=== PATIENT | female | born 1960 | race Caucasian/White ===

== ENCOUNTER → 2018-06-02 | Outpatient (CLI) | payer OTHER ==
--- NOTE | 2018-06-06 10:42 | MM ---
Reason for exam: screening (asymptomatic). Last mammogram was performed 4 years and 4 months ago. History: Patient is postmenopausal. Family history of breast cancer in sister, breast cancer in maternal aunt, breast cancer in maternal cousin, and breast cancer in mother at age 55. Benign left US cyst aspiration of the left breast, May 09, 2010. Took hormonal contraceptives for 19 years beginning at age 18. MG Screening Mammo w CAD Bilateral CC and MLO view(s) were taken. Prior study comparison: February 08, 2014, right breast MG work up mamm w CAD RT. February 02, 2014, bilateral MG screening mammo w CAD. The breast tissue is heterogeneously dense. This may lower the sensitivity of mammography. There are benign-appearing round right breast calcifications. Chronic nodularityin the left axilla. No discrete abnormality. ASSESSMENT: Benign, BI-RAD 2 RECOMMENDATION: Routine screening mammogram of both breasts in 1 year.
== END ==
LOC: RADMAMWWP 07:24
PROVIDERS: ATTEND Family Medicine
DX: Z12.31 Encounter for screening mammogram for malignant neoplasm of breast (principal)
CPT/HCPCS: 77067

== ENCOUNTER 2018-10-18 22:53 | Emergency (ER) | payer OTHER ==
[2018-10-18 23:09] VITALS: TEMP 98.9
[2018-10-18] MEDS ORDERED: SODIUM CHLORIDE 0.9% 1,000 ML IV STA (23:17)
[2018-10-18 23:48] LABS: Amorphous Sediment,Urine Occasional /hpf; Appearance,Urine Turbid (Clear); Bilirubin,Urine Negative (Negative); Blood,Urine Small (Negative); Color,Urine Yellow; Glucose,Urine (UA) Negative (Negative); Ketones,Urine Negative (Negative); Leukocyte Esterase,Urine Negative (Negative); Mucus,Urine Few /hpf; Nitrite,Urine Negative (Negative); PH, Urine 5.5 (5.0-8.0); Protein,Urine Trace (Negative); RBC,Urine 15 /hpf (0-5); Specific Gravity,Urine 1.028 (1.001-1.035); Squamous Epithelial Cell,Urine 9 /hpf (0-4); Urobilinogen,Urine <2.0 mg/dL (<2.0)
[2018-10-18 23:49] LABS: HCT 41.1 % (34.0-46.0); HGB 13.7 gm/dL (11.4-16.0); MCH 28.6 pg (25.0-35.0); MCHC 33.2 g/dL (31.0-37.0); MCV 86.2 fL (80.0-100.0); Mean Platelet Volume 7.3; Platelet Count 278 k/uL (150-450); RBC 4.78 m/uL (3.80-5.40); RDW 14.1 % (11.5-15.5); WBC 5.1 k/uL (3.8-10.6)
[2018-10-18 23:52] LABS: ALT 44 U/L (9-52); AST 33 U/L (14-36); Albumin 3.5 g/dL (3.5-5.0); Alkaline Phosphatase 60 U/L (38-126); Anion Gap 6 mmol/L; Blood Urea Nitrogen 11 mg/dL (7-17); Calcium 8.8 mg/dL (8.4-10.2); Carbon Dioxide 27 mmol/L (22-30); Chloride 106 mmol/L (98-107); Glucose 103 mg/dL (74-99); Lipase 68 U/L (23-300); Potassium 3.5 mmol/L (3.5-5.1); Sodium 139 mmol/L (137-145); Total Bilirubin 0.2 mg/dL (0.2-1.3); Total Protein 5.9 g/dL (6.3-8.2)
[2018-10-19 00:18] LABS: Lymphocytes # (M) 1.33 k/uL (1.0-4.8); Monocytes # (M) 0.66 k/uL (0-1.0); Neutrophils # (M) 2.91 k/uL (1.3-7.7); Neutrophils % (M) 57 %; Nucleated Red Blood Cells 0 /100 WBC (0-0); Total Cells Counted 100
[2018-10-19] MEDS ORDERED: PANTOPRAZOLE 40 MG/10 ML VIAL IVP STA (00:25)
[2018-10-19] MEDS ORDERED: ACETAMINOPHEN TAB 325 MG TAB PO STA (01:08)
[2018-10-19 01:24] VITALS: BP 106/59; PULSE 96; RESP 18
--- NOTE | 2018-10-19 01:24 | ED ---
General Adult HPI - General Source: patient, RN notes reviewed, old records reviewed Mode of arrival: ambulatory Limitations: no limitations <Trent Redd - Last Filed: 10/19/18 01:55> <Steph Kaufman - Last Filed: 10/19/18 07:25> - General Chief complaint: Abdominal Pain Stated complaint: Abd Pain Time Seen by Provider: 10/18/18 23:16 - History of Present Illness Initial comments: 58-year-old female patient with past medical history of cholecystectomy presents ED with 2 days of epigastric pain, nausea and diarrhea. Patient states that she also feels very bloated. Patient states that she has taken Zantac at home which has not improved her symptoms. Patient denies any chest pain or shortness of breath. Patient denies any other complaints. Systemic: Pt denies fatigue, myalgia, fever/chills, rash. Pt denies weakness, night sweats, weight loss. Neuro: Pt denies headache, visual disturbances, syncope or pre-syncope. HEENT: Pt denies ocular discharge or irritation, otalgia, rhinorrhea, pharyngi tis or notable lymphadenopathy. Cardiopulmonary: Pt denies chest pain, SOB, heart palpitations, dyspnea on exertion. Abdominal/GI: Pt denies nausea and vomitting. : Pt denies dysuria, burning w/ urination, frequency/urgency. Denies new onset urinary or bowel incontinence. MSK: Pt denies myalgia, loss of strength or function in extremities. Neuro: Pt denies new onset weakness, paresthesias. (Trent Redd) - Related Data Previous Rx's Medication Instructions Recorded Ondansetron Odt [Zofran ODT] 4 mg PO Q8HR PRN #20 tab 10/19/18 Pantoprazole Sodium [Protonix] 20 mg PO Q24HR 14 Days #14 10/19/18 tablet. Allergies Allergy/AdvReac Type Severity Reaction Status Date / Time codeine AdvReac Nausea & Verified 10/18/18 23:09 Vomiting Review of Systems ROS Other: All systems not noted in ROS Statement are negative. <Trent Redd - Last Filed: 10/19/18 01:55> ROS Other: All systems not noted in ROS Statement are negative. <Steph Kaufman - Last Filed: 10/19/18 07:25> ROS Statement: Those systems with pertinent positive or pertinent negative responses have been documented in the HPI. Past Medical History Additional Past Medical History / Comment(s): ectopic History of Any Multi-Drug Resistant Organisms: None Reported Past Surgical History: Cholecystectomy Past Psychological History: No Psychological Hx Reported Smoking Status: Former smoker Past Alcohol Use History: Occasional Past Drug Use History: None Reported <Trent Redd - Last Filed: 10/19/18 01:55> General Exam Limitations: no limitations <Trent Redd - Last Filed: 10/19/18 01:55> - General Exam Comments Initial Comments: Constitutional: NAD, AOX3, Pt has pleasant affect. HEENT: NC/AT, trachea midline, neck supple, no lymphadenopathy. Posterior pharynx non erythematous, without exudates. External ears appear normal, without discharge. Mucous membranes moist. Eyes PERRLA, EOM intact. There is no scleral icterus. No pallor noted. Cardiopulmonary: RRR, no murmurs, rubs or gallops, no JVD noted. Lungs CTAB in anterior and posterior palma. No peripheral edema. Abdominal exam: Abdomen soft and non-distended. Abdomen mildly tender to palpation in epigastric region. No other areas of abdominal tenderness. No guarding or rigidity no ecchymoses.. Bowel sounds active in LLQ. No hepatosplenomegaly. No ecchymosis Neuro: CN II-XII grossly intact. No nuchal rigidity. MSK: No posterior calf tenderness bilaterally, homans sign negative bilaterally. Posterior tibialis and radial pulse +2 bilaterally. Sensation intact in upper and lower extremities. Full active ROM in upper and lower extremities, 5/5 stregnth. (Trent eRdd) Course Vital Signs 10/18/18 10/19/18 23:05 01:23 Temperature 98.9 F Pulse Rate 104 H 96 Respiratory 20 18 Rate Blood Pressure 116/76 106/59 O2 Sat by Pulse 97 100 Oximetry Medical Decision Making - Lab Data Result diagrams: 10/18/18 23:30 10/18/18 23:30 <Trent Redd - Last Filed: 10/19/18 01:55> - Lab Data Result diagrams: 10/18/18 23:30 10/18/18 23:30 <Steph Kaufman - Last Filed: 10/19/18 07:25> - Medical Decision Making 58-year-old female patient with past medical history of cholecystectomy presents ED with 2 days of epigastric pain, nausea and diarrhea. Patient states that she also feels very bloated. Patient states that she has taken Zantac at home which has not improved her symptoms. Patient denies any chest pain or shortness of breath. Patient denies any other complaints. Patient also has stable, afebrile. Physical exam revealed mild epigastric tenderness to palpation. O2 investigations revealed no impressive CBC, CMP. UA displayed 15 red blood cells, 9 squamous epithelial cells. Discussed with patient. Patient this is likely gastritis. Patient's CT, patient reports that she would like to have a computed tomography scan to rule out other causes. CT abdomen and pelvis displayed fluid filled bowel which may represent enteritis. Findings also suggestive of mesenteric panniculitis. Patient will be discharged with GI referral. Patient will be prescribed protonix for presumed gastritis. Will follow up with primary care provider in 1-2 days. Case discussed with Dr. Kaufman. (Trent Redd) I was available for consultation in the emergency department. The history and physical exam were done by the midlevel provider. I was consulted for this patient's care. I reviewed the case with the midlevel provider and based on their presentation of the patient, I agree with the assessment, medical decision making and plan of care as documented. Chart was dictated using [employer] dictation software. Attempts were made to correct any dictation errors however some typographical errors may persist. (Steph Kaufman) - Lab Data Lab Results 10/18/18 10/18/18 10/18/18 Range/Units 23:30 23:30 23:30 WBC 5.1 (3.8-10.6) k/uL RBC 4.78 (3.80-5.40) m/uL Hgb 13.7 (11.4-16.0) gm/dL Hct 41.1 (34.0-46.0) % MCV 86.2 (80.0-100.0) fL MCH 28.6 (25.0-35.0) pg MCHC 33.2 (31.0-37.0) g/dL RDW 14.1 (11.5-15.5) % Plt Count 278 (150-450) k/uL Neutrophils % (Manual) 57 % Lymphocytes % (Manual) 26 % Monocytes % (Manual) 13 % Eosinophils % (Manual) 4 % Neutrophils # (Manual) 2.91 (1.3-7.7) k/uL Lymphocytes # (Manual) 1.33 (1.0-4.8) k/uL Monocytes # (Manual) 0.66 (0-1.0) k/uL Eosinophils # (Manual) 0.20 (0-0.7) k/uL Nucleated RBCs 0 (0-0) /100 WBC Manual Slide Review Performed Sodium 139 (137-145) mmol/L Potassium 3.5 (3.5-5.1) mmol/L Chloride 106 (98-107) mmol/L Carbon Dioxide 27 (22-30) mmol/L Anion Gap 6 mmol/L BUN 11 (7-17) mg/dL Creatinine 0.58 (0.52-1.04) mg/dL Est GFR (CKD-EPI)AfAm >90 (>60 ml/min/1.73 sqM) Est GFR (CKD-EPI)NonAf >90 (>60 ml/min/1.73 sqM) Glucose 103 H (74-99) mg/dL Calcium 8.8 (8.4-10.2) mg/dL Total Bilirubin 0.2 (0.2-1.3) mg/dL AST 33 (14-36) U/L ALT 44 (9-52) U/L Alkaline Phosphatase 60 (38-126) U/L Total Protein 5.9 L (6.3-8.2) g/dL Albumin 3.5 (3.5-5.0) g/dL Lipase 68 (23-300) U/L Urine Color Yellow Urine Appearance Turbid H (Clear) Urine pH 5.5 (5.0-8.0) Ur Specific [place] 1.028 (1.001-1.035) Urine Protein Trace H (Negative) Urine Glucose (UA) Negative (Negative) Urine Ketones Negative (Negative) Urine Blood Small H (Negative) Urine Nitrite Negative (Negative) Urine Bilirubin Negative (Negative) Urine Urobilinogen <2.0 (<2.0) mg/dL Ur Leukocyte Esterase Negative (Negative) Urine RBC 15 H (0-5) /hpf Ur Squamous Epith Cells 9 H (0-4) /hpf Amorphous Sediment Occasional H (None) /hpf Urine Mucus Few H (None) /hpf Disposition Is patient prescribed a controlled substance at d/c from ED?: No <KangelieserTrent James - Last Filed: 10/19/18 01:55> <Steph Kaufman - Last Filed: 10/19/18 07:25> Clinical Impression: Gastritis Disposition: HOME SELF-CARE Condition: Stable Instructions (If sedation given, give patient instructions): Gastritis (ED) Additional Instructions: Patient to adhere to previously discussed treatment plan and will take medication(s) as directed. Patient to follow up with PCP in 1-2 days. Patient to return to ED if symptoms do not improve. Take medication as prescribed. Follow up with GI consult 1-2 days. Follow up with primary care provider in 1-2 days. Prescriptions: Pantoprazole Sodium [Protonix] 20 mg PO Q24HR 14 Days #14 tablet. Ondansetron Odt [Zofran ODT] 4 mg PO Q8HR PRN #20 tab PRN Reason: Nausea Referrals: Boaz Edwards MD [Primary Care Provider] - 1-2 days Mk Jimenez MD [STAFF PHYSICIAN] - 1-2 days
--- NOTE | 2018-10-19 01:34 | CT ---
EXAM: CT Abdomen and Pelvis With Intravenous Contrast CLINICAL HISTORY: Pain TECHNIQUE: Axial computed tomography images of the abdomen and pelvis with intravenous contrast. DLP is 782 mGy-cm. This CT exam was performed using one or more of the following dose reduction techniques: automated exposure control, adjustment of the mA and/or kV according to patient size, and/or use of iterative reconstruction technique. COMPARISON: No prior CT. Ultrasound and plain films from February 2013. FINDINGS: Imaged lung bases clear. No evidence for acute pancreatitis or other acute abnormality of the solid viscera. Left adrenal thickening/possible mild nodularity. Pelvic vessels mildly prominent. May represent findings of pelvic congestion. No bowel obstruction. There is prominent fluid in bowel including the colon. Nonspecific gastric distention. No perienteric inflammatory changes. Findings may represent enteritis in the appropriate clinical context. There is infiltration of mesenteric root with small mesenteric nodes. Finding suggest mesenteric panniculitis. Although can be asymptomatic, clinical presentation is variable with symptoms including abdominal pain and diarrhea. Associated with various conditions, both neoplastic and nonneoplastic. No evidence for appendicitis. Cholecystectomy. Osseous degenerative changes. Transitional lumbosacral vertebra with pseudoarthrosis on the left. IMPRESSION: Prominent fluid in bowel without perienteric inflammatory changes. May represent enteritis in the appropriate clinical context. Findings suggestive of mesenteric panniculitis. Although can be asymptomatic, clinical presentation is variable with symptoms including abdominal pain and diarrhea. Associated with various conditions, both neoplastic and nonneoplastic. PET/CT may be useful to differentiate between mesenteric panniculitis and malignant mesenteric involvement such as lymphoma and could be obtained non-emergently, as indicated. Findings which may represent pelvic congestion and other incidentals, as above.
[2018-10-19] MEDS ORDERED: ONDANSETRON ODT 4 MG TAB PO STA (02:15)
== END 2018-10-19 02:19 | disposition home or self-care (01) ==
LOC: EC 22:53
DX: K29.70 Gastritis, unspecified, without bleeding (principal); Z88.5 Allergy status to narcotic agent; Z87.891 Personal history of nicotine dependence; Z90.49 Acquired absence of other specified parts of digestive tract
CPT/HCPCS: 36415; 80053; 83690; 85025; 81001; 74177; 99284; 96374; 96361; C9113; Q9967

== ENCOUNTER → 2022-03-19 | Outpatient (CLI) | payer OTHER ==
--- NOTE | 2022-03-20 16:55 | MM ---
Reason for Exam: Screening (asymptomatic). Last mammogram was performed 3 year(s) and 9 month(s) ago. Patient History: Menarche at age 14. First Full-Term at age 23. Postmenopausal. Hormonal Contraceptives, from age 18 until age 32. 05/09/2010, Benign Cyst Aspiration on the left side. Maternal cousin had breast cancer. Maternal aunt had breast cancer. Sister had breast cancer at or over age 50. Mother had breast cancer, age 55. Risk Values: Lexi 5 year model risk: 5.6%. NCI Lifetime model risk: 27.2%. Prior Study Comparison: 02/02/2014 Bilateral Screening Mammogram, [facility]. 02/08/2014 Right Diagnostic Mammogram, [facility]. 06/02/2018 Bilateral Screening Mammogram, [facility]. Tissue Density: There are scattered fibroglandular densities. Findings: Analyzed By CAD. Chronic nodularity is present. No suspicious groups of microcalcifications, spiculated or lobular masses, architectural distortion or other secondary signs of malignancy are mammographically apparent. Overall Assessment: Negative, BI-RAD 1 Management: Screening Mammogram of both breasts in 1 year. A negative mammogram report should not preclude additional follow up of suspicious palpable abnormalities. Patient should continue monthly self breast exam. A clinical breast exam by your physician is recommended on an annual basis and results should be correlated with mammographic findings. Electronically signed and approved by: Denis Solis D.O. Radiologis
== END | disposition home or self-care (01) ==
LOC: RADMAMWWP 15:18
PROVIDERS: ATTEND Obstetrics & Gynecology
DX: Z12.31 Encounter for screening mammogram for malignant neoplasm of breast (principal)
CPT/HCPCS: 77063; 77067